=== PATIENT | female | born 1980 | race Caucasian/White ===

== ENCOUNTER 2018-01-16 09:25 | Observation (INO) | payer MEDICARE, MEDICAID ==
[2018-01-10 15:09] VITALS: BP 117/73
[~2018-01-16] VITALS: Ht 162.6 cm; Wt 72.8 kg
[~2018-01-16 09:25] MED LIST changes: -ACETAMINOPHEN 325 MG TABLET PO PRN; -ALBUTEROL SULFATE 2.5 MG/3 ML NPPB PRN; -BISACODYL 5 MG EC TABLET PO PRN; -CEFAZOLIN PMX 1GM/50ML 50 ML IVPB ONE; -CHOL5000 PO; -DIPHENHYDRAMINE 50 MG/ML, 1ML IVPush ONE; -FENTANYL PF 100 MCG/2ML IV PRN; -FLUOXETINE HCL 20 MG CAPSULE PO SCH; -HYDROcodone/APAP 5/325 TABLET PO PRN; -LABETALOL 5MG/ML, 20ML IV PRN; -LEVOTHYROXINE 112 MCG TABLET PO SCH; -LORATADINE 10 MG TABLET PO SCH; -MEPERIDINE/PF 25MG/0.5ML IVPush PRN; -MIDAZOLAM 1 MG/ML, 2ML IV PRN; -MORPHINE SULFATE 4 MG/ML, 1ML IVPush PRN; -ONDANSETRON 2MG/ML, 2ML IV PRN; -ONDANSETRON ODT 8 MG PO PRN; -OXYcodone 5 MG/5 ML ORAL.SOL UDC PO PRN; -PLEASE ENTER HEIGHT AND WEIGHT MC SCH; -PROMETHAZINE 12.5 MG SUPP PR PRN; -PROMETHAZINE 25 MG/ML, 1ML IV PRN; -SCOPOLAMINE PATCH, 1.5MG PATCH.TD72 TD PRN; -SODIUM CHLORIDE FLUSH 10ML SYR IVF SCH; -WARFARIN 2.5 MG TABLET PO-COUM SCH; -ZOLPIDEM 5MG TABLET PO PRN; -hydrALAzine 20 MG/ML, 1ML IV PRN; -methylPREDNISolone SOD SUCC 125 MG/2 ML IVPush ONE
[2018-01-16] MEDS ORDERED: SODIUM CHLORIDE 0.9% 1,000 ML IV SCH (09:34)
[2018-01-16] MEDS ORDERED: CHOL5000 PO (10:02)
[2018-01-16 10:25] LABS: INTERNATIONAL NORMALIZED RATIO 1.51 (0.93-1.1); PROTHROMBIN TIME 15.6 Seconds (9.6-11.5)
[2018-01-16] MEDS ORDERED: FENTANYL PF 100 MCG/2ML ONE ×2 (10:38→13:26)
[2018-01-16] MEDS ORDERED: MIDAZOLAM 1 MG/ML, 5ML ONE (10:38)
[2018-01-16] MEDS ORDERED: VANCOMYCIN 500 MG ONE (10:38)
[2018-01-16] MEDS ORDERED: LIDOCAINE/PF 1%, 30ML ONE (10:38)
[2018-01-16] MEDS ORDERED: VANCOMYCIN PMX 1GM/200ML 200 ML ONE (10:38)
[2018-01-16] MEDS ORDERED: DIPHENHYDRAMINE 50 MG/ML, 1ML ONE (10:44)
[2018-01-16] MEDS ORDERED: methylPREDNISolone SOD SUCC 125 MG/2 ML ONE (10:44)
[2018-01-16] MEDS ORDERED: PROPOFOL 10 MG/ML, 20ML ONE (11:15)
[2018-01-16] MEDS ORDERED: DEXAMETHASONE 4 MG/ML, 1ML ONE (11:15)
[2018-01-16] MEDS ORDERED: ONDANSETRON 2MG/ML, 2ML ONE (11:15)
[2018-01-16] MEDS ORDERED: MIDAZOLAM 1 MG/ML, 2ML ONE (13:27)
[2018-01-16] MEDS: MIDAZOLAM 1 MG/ML, 2ML IV PRN (13:29)
[2018-01-16] MEDS ORDERED: OXYcodone 5 MG/5 ML ORAL.SOL UDC PO PRN ×2 (13:30→16:30)
[2018-01-16] MEDS ORDERED: MEPERIDINE/PF 25MG/0.5ML IVPush PRN ×2 (13:30→16:30)
[2018-01-16] MEDS ORDERED: ONDANSETRON ODT 8 MG PO PRN ×2 (13:30→16:30)
[2018-01-16] MEDS ORDERED: MORPHINE SULFATE 4 MG/ML, 1ML IVPush PRN ×2 (13:30→16:30)
[2018-01-16] MEDS ORDERED: PROMETHAZINE 25 MG/ML, 1ML IV PRN ×2 (13:30→16:30)
[2018-01-16] MEDS ORDERED: PROMETHAZINE 25 MG SUPP PR PRN (13:30)
[2018-01-16] MEDS ORDERED: LABETALOL 5MG/ML, 20ML IV PRN ×2 (13:30→16:30)
[2018-01-16] MEDS ORDERED: ALBUTEROL SULFATE 2.5 MG/3 ML NPPB PRN ×2 (13:30→16:30)
[2018-01-16] MEDS ORDERED: hydrALAzine 20 MG/ML, 1ML IV PRN ×2 (13:30→16:30)
[2018-01-16] MEDS ORDERED: SCOPOLAMINE PATCH, 1.5MG PATCH.TD72 TD PRN ×2 (13:30→16:30)
[2018-01-16] MEDS ORDERED: ACETAMINOPHEN 325 MG TABLET PO PRN ×2 (13:30→16:30)
[2018-01-16] MEDS ORDERED: FENTANYL PF 100 MCG/2ML IV PRN ×2 (13:30→16:30)
[2018-01-16] MEDS ORDERED: BISACODYL 5 MG EC TABLET PO PRN ×2 (14:30→16:30)
[2018-01-16] MEDS ORDERED: HYDROcodone/APAP 5/325 TABLET PO PRN ×2 (14:30→16:30)
[2018-01-16] MEDS ORDERED: CEFAZOLIN PMX 1GM/50ML 50 ML IVPB ONE (14:30)
[2018-01-16] MEDS ORDERED: ONDANSETRON 2MG/ML, 2ML IV PRN (16:30)
[2018-01-16] MEDS ORDERED: methylPREDNISolone SOD SUCC 125 MG/2 ML IVPush ONE ×2 (16:30→20:00)
[2018-01-16] MEDS ORDERED: MIDAZOLAM 1 MG/ML, 2ML IV PRN (16:30)
[2018-01-16] MEDS ORDERED: ZOLPIDEM 5MG TABLET PO PRN (16:30)
[2018-01-16] MEDS ORDERED: PROMETHAZINE 12.5 MG SUPP PR PRN (16:30)
[2018-01-16] MEDS ORDERED: DIPHENHYDRAMINE 50 MG/ML, 1ML IVPush ONE ×2 (16:30→20:00)
[2018-01-16] MEDS ORDERED: WARFARIN 2.5 MG TABLET PO-COUM SCH ×2 (18:00)
[2018-01-16 19:06] VITALS: BP 116/75
[2018-01-16] MEDS ORDERED: SODIUM CHLORIDE FLUSH 10ML SYR IVF SCH (21:00)
[2018-01-16] MEDS ORDERED: CEFAZOLIN 1,000 MG in SODIUM CHLORIDE 0.9% 50 ML IVPB ONE (21:00)
[2018-01-16] MEDS: SODIUM CHLORIDE FLUSH 10ML SYR IVF SCH (21:00)
[2018-01-17 00:24] VITALS: BP 99/62
[2018-01-17] MEDS ORDERED: LEVOTHYROXINE 112 MCG TABLET PO SCH ×2 (06:00)
[2018-01-17] MEDS: SODIUM CHLORIDE FLUSH 10ML SYR IVF SCH (07:45)
[2018-01-17 07:55] VITALS: BP 103/69
[2018-01-17] MEDS ORDERED: LORATADINE 10 MG TABLET PO SCH ×2 (09:00)
[2018-01-17] MEDS ORDERED: FLUOXETINE HCL 20 MG CAPSULE PO SCH ×2 (09:00)
== END 2018-01-17 11:13 | disposition home or self-care (01) ==
LOC: CACL 09:25 → ORIP 14:06 → 5SO 15:25
PROVIDERS: ADMIT Internal Medicine Cardiovascular Disease; ATTEND Internal Medicine Cardiovascular Disease
DX: T82.190A Other mechanical complication of cardiac electrode, initial encounter (principal); Q24.6 Congenital heart block; I67.89 Other cerebrovascular disease; I44.2 Atrioventricular block, complete; Z79.01 Long term (current) use of anticoagulants; Y83.8 Other surgical procedures as the cause of abnormal reaction of the patient, or of later complication, without mention of misadventure at the time of the procedure; Y92.89 Other specified places as the place of occurrence of the external cause
CPT/HCPCS: 33207; 33233; 36415; 71045; 71046; 85610; 96365; 96375; C1769; C1779; C1785; C1892; C1894; G0378; J0690; J1100; J1200; J2250; J2405; J2704; J2930; J3370; J3490; Q9967; 36005; J3010

== ENCOUNTER → 2018-01-16 | Outpatient (CLI) | payer MEDICARE, MEDICAID ==
[~2018-01-16] MED LIST: ACETAMINOPHEN 325 MG TABLET PO PRN; ALBUTEROL SULFATE 2.5 MG/3 ML NPPB PRN; BISACODYL 5 MG EC TABLET PO PRN; CEFAZOLIN PMX 1GM/50ML 50 ML IVPB ONE; CHOL5000 PO; DIPHENHYDRAMINE 50 MG/ML, 1ML IVPush ONE; FENTANYL PF 100 MCG/2ML IV PRN; FLUO20CA8 PO; FLUOXETINE HCL 20 MG CAPSULE PO SCH; HYDROcodone/APAP 5/325 TABLET PO PRN; LABETALOL 5MG/ML, 20ML IV PRN; LEVO112T2 PO; LEVOTHYROXINE 112 MCG TABLET PO SCH; LORA10TA75 PO; LORATADINE 10 MG TABLET PO SCH; MEPERIDINE/PF 25MG/0.5ML IVPush PRN; MIDAZOLAM 1 MG/ML, 2ML IV PRN; MORPHINE SULFATE 4 MG/ML, 1ML IVPush PRN; ONDANSETRON 2MG/ML, 2ML IV PRN; ONDANSETRON ODT 8 MG PO PRN; OXYcodone 5 MG/5 ML ORAL.SOL UDC PO PRN; PLEASE ENTER HEIGHT AND WEIGHT MC SCH; PROMETHAZINE 12.5 MG SUPP PR PRN; PROMETHAZINE 25 MG/ML, 1ML IV PRN; SCOPOLAMINE PATCH, 1.5MG PATCH.TD72 TD PRN; SODIUM CHLORIDE FLUSH 10ML SYR IVF SCH; WARF2.5T PO; WARF5TAB PO; WARFARIN 2.5 MG TABLET PO-COUM SCH; ZOLPIDEM 5MG TABLET PO PRN; [UNRECOGNIZED DRUG - CODE] INTRATRACH; hydrALAzine 20 MG/ML, 1ML IV PRN; methylPREDNISolone SOD SUCC 125 MG/2 ML IVPush ONE
[2018-01-17 05:31] LABS: INTERNATIONAL NORMALIZED RATIO 1.44 (0.93-1.1); PROTHROMBIN TIME 14.7 Seconds (9.6-11.5)
== END | disposition home or self-care (01) ==
LOC: STAR 01-10 12:51 → EDSTATUS 01-10 13:30 → CLISVCS 09:19 → CACL 09:19 → UNDOADMOB 12:56 → ORIP 12:56
PROVIDERS: ATTEND Internal Medicine Cardiovascular Disease
DX: Z02.9 Encounter for administrative examinations, unspecified (principal)
CPT/HCPCS: 36415; 85610

== ENCOUNTER 2020-03-22 10:27 | Emergency (ER) | payer MEDICARE, MEDICAID ==
[~2020-03-22] VITALS: Ht 162.6 cm; Wt 64.0 kg
[~2020-03-22 10:27] MED LIST changes: +CHOL5000 PO; +FLUO20CA23 PO; -FLUO20CA8 PO; -WARF2.5T PO; +WARF2.5T2 PO; -WARF5TAB PO; +WARF5TAB2 PO
[2020-03-22 11:18] LABS: BASOPHILS # (AUTO) 0.01 x10^3/uL (0-0.1); BASOPHILS % (AUTO) 0 % (0-1); EOSINOPHILS # (AUTO) 0.05 x10^3/uL (0-0.4); EOSINOPHILS % (AUTO) 1 % (1-7); LYMPHOCYTES # (AUTO) 0.97 x10^3/uL (1-3.4); LYMPHOCYTES % (AUTO) 16 % (22-44); MD NO; MEAN CORPUSCULAR HEMOGLOBIN 28.7 pg (27.0-34.8); MEAN CORPUSCULAR HGB CONC 33.9 g/dL (32.4-35.8); MEAN CORPUSCULAR VOLUME 84.7 fL (80-100); MEAN PLATELET VOLUME 8.5 fL (7.4-10.4); MONOCYTES # (AUTO) 0.46 x10^3/uL (0.2-0.8); MONOCYTES % (AUTO) 8 % (2-9); NEUTROPHILS # (AUTO) 4.65 x10^3/uL (1.8-6.8); NEUTROPHILS % (AUTO) 76 % (42-75); PLATELET COUNT 236 x10^3/uL (130-400); RED BLOOD COUNT 4.97 x10^6/uL (3.82-5.3); RED CELL DISTRIBUTION WIDTH 13.3 % (9.6-15.2)
--- NOTE | 2020-03-22 11:24 | NUR ---
ULTRASOUND DELAY DUE TO PT GETTING CATH
[2020-03-22 11:27] LABS: INTERNATIONAL NORMALIZED RATIO 2.22 (0.93-1.1); PROTHROMBIN TIME 23.7 Seconds (9.6-11.5)
[2020-03-22 11:28] LABS: ALBUMIN 3.5 g/dL (3.4-5.0); ANION GAP 3 mmol/L (5-15); CALCIUM 8.6 mg/dL (8.5-10.1); CHLORIDE 108 mmol/L (98-107); CREATININE 0.85 mg/dL (0.55-1.02)
--- NOTE | 2020-03-22 11:35 | NUR ---
STRAIGHT CATH DONE PER ORDERS. PT RESTING IN BED, MODERATE VB NOTED, SOME SMALL CLOTS. NEW PAD GIVEN TO PT. PT AWAITING U/S. UA SAMPLE SENT TO LAB. PT ON MONITORS, VSS. CONT TO MONITOR.
[2020-03-22 11:59] LABS: MICROSCOPIC INDICATED
--- NOTE | 2020-03-22 13:08 | NUR ---
PT TO XRAY.
--- NOTE | 2020-03-22 14:37 | NUR ---
PT D/C'D PER ORDDERS. PT HAS ALL OWN BELONGINGS UPON D/C. PT AND PT'S MOTHER VERBALIZED UNDERSTANDING OF D/C INSTRUCTIONS.
[2020-03-22 14:38] VITALS: BP 122/76
== END 2020-03-22 14:41 | disposition home or self-care (01) ==
LOC: ED 11:54
DX: N92.0 Excessive and frequent menstruation with regular cycle (principal); Z86.73 Personal history of transient ischemic attack (TIA), and cerebral infarction without residual deficits; Z95.0 Presence of cardiac pacemaker
CPT/HCPCS: 36415; 72170; 74018; 76830; 80048; 81001; 82040; 84703; 85025; 85610; 86850; 86900; 99285